=== PATIENT | male | born 1995 | race Two or more races ===

== ENCOUNTER 2019-10-20 15:01 | Emergency (ER) | payer SELFPAY ==
[~2019-10-20] VITALS: Ht 172.7 cm; Wt 61.2 kg
[2019-10-20 15:05] VITALS: BP 127/72
== END 2019-10-20 15:53 | disposition home or self-care (01) ==
LOC: ER 15:01
DX: S81.011D Laceration without foreign body, right knee, subsequent encounter (principal); X58.XXXD Exposure to other specified factors, subsequent encounter